=== PATIENT | female | born 1955 | race Two or more races ===

== ENCOUNTER 2024-07-02 20:19 | Emergency (ER) | payer OTHER ==
[~2024-07-02] VITALS: Ht 157.5 cm; Wt 54.4 kg
[2024-07-02 20:30] VITALS: BP 155/88; O2SAT 99
[2024-07-02] MEDS ORDERED: LOSARTAN-HCTZ1 EACH (20:30)
[2024-07-02] MEDS ORDERED: LIPITOR20 MG (20:30)
[2024-07-03] MEDS ORDERED: KETOROLAC TROMETHAMINE 60 MG VIAL IM STA (00:29)
[2024-07-03] MEDS ORDERED: KETOROLAC TROMETHAMINE 60 MG VIAL IM ONE (00:31)
[2024-07-03] MEDS ORDERED: MELOXICAM15 MG PO (01:27)
== END 2024-07-03 01:32 ==
LOC: ER 20:20
DX: S80.02XA Contusion of left knee, initial encounter (principal); S50.02XA Contusion of left elbow, initial encounter; S60.212A Contusion of left wrist, initial encounter; W18.39XA Other fall on same level, initial encounter; Y93.89 Activity, other specified; Y92.488 Other paved roadways as the place of occurrence of the external cause; Y99.9 Unspecified external cause status; I10 Essential (primary) hypertension
CPT/HCPCS: 73070; 73100; 73560; 96372; 99284; J1885

== ENCOUNTER 2024-08-08 13:55 | Outpatient (CLI) | payer OTHER ==
[~2024-08-08 13:55] MED LIST: LIPITOR20 MG; LOSARTAN-HCTZ1 EACH; MELOXICAM15 MG PO
== END 2024-08-08 14:00 | disposition home or self-care (01) ==
LOC: RAD 13:55
PROVIDERS: ATTEND Orthopaedic Surgery Hand Surgery
DX: M25.522 Pain in left elbow (principal); M24.122 Other articular cartilage disorders, left elbow